=== PATIENT | male | born 1960 | race Caucasian/White ===

== ENCOUNTER 2017-07-14 06:30 | Day surgery (SDC) | payer BC ==
[2017-07-14] MEDS ORDERED: PROPOFOL 10 MG/ML VIAL IV ONE (06:31)
[2017-07-14] MEDS ORDERED: MIDAZOLAM HCL 2MG/2ML VIAL IV ONE (06:31)
[2017-07-14] MEDS ORDERED: LIDOCAINE 2% MDV (20MG/ML) 20ML VIAL IV ONE (06:31)
--- NOTE | 2017-07-18 08:40 | Operative Note ---
DATE OF SURGERY: 07/14/2017 SURGEON: Alan Brasher MD OPERATION: COLONOSCOPY. INDICATIONS: This is a 57-year-old male with history of colon polyps who presented for surveillance colonoscopy. POSTOPERATIVE DIAGNOSES: 1. Occasional left- and right-sided diverticulosis. 2. Grade 2 internal hemorrhoids. ANESTHESIA: Sedation is per Anesthesia. Pulse oximetry was monitored throughout the procedure to maintain O2 saturation of 90% or greater. Supplemental oxygen was administered via nasal cannula. Cardiac and vital signs were monitored throughout the duration of the procedure, and they were stable. The procedure of colonoscopy and risks and alternatives of the procedure, including the risk of bleeding and perforation, among others, were explained to the patient who voiced understanding and agreed to have the procedure done. Physical examination was performed, and the patient was found stable for sedation. PROCEDURE: The patient was placed in the left lateral position. Sedation was initiated. A digital rectal exam was performed and showed some mild external hemorrhoids with no palpable rectal masses. An Olympus PCF-180AL colonoscope was then inserted into the rectum under direct visualization. It was advanced to the cecum without difficulty. The ileocecal valve and appendiceal orifice were identified and photographed. The colonic mucosa was carefully examined upon introduction of the colonoscope. There were occasional diverticula noted in the sigmoid and descending and proximal ascending colon close to the cecum. There were no other lesions noted. The bowel preparation was good. The colonoscope was then withdrawn while carefully examining the colonic mucosal surfaces. The cecum, ascending colon, transverse colon, descending colon, and sigmoid colon mucosa revealed no other lesions. In the rectum there were grade 3 internal hemorrhoids noted upon retroflexion. The difficulty of the procedure was extremely difficult given poor colonoscopes. The patient was then taken into the recovery room. The patient tolerated the procedure well without any immediate complications. RECOMMENDATIONS: The patient is to have a repeat colonoscopy for surveillance in about 5 years. Thank you for allowing me to participate in the care of your patient. CC: Dr. Brenda NUNES
== END 2017-07-14 08:48 | disposition home or self-care (01) ==
LOC: HOP 06:30
PROVIDERS: ATTEND Internal Medicine Gastroenterology
DX: Z12.11 Encounter for screening for malignant neoplasm of colon (principal); Z86.010 Personal history of colon polyps; K57.30 Diverticulosis of large intestine without perforation or abscess without bleeding; K64.1 Second degree hemorrhoids; E11.9 Type 2 diabetes mellitus without complications; Z79.4 Long term (current) use of insulin; I10 Essential (primary) hypertension; E78.00 Pure hypercholesterolemia, unspecified; M19.90 Unspecified osteoarthritis, unspecified site
CPT/HCPCS: 00812; G0105